=== PATIENT | male | born 1965 ===

== ENCOUNTER 2022-08-30 06:51 | Day surgery (SDC) | payer OTHER ==
[~2022-08-30 06:51] MED LIST: PREVACID30 MG PO; ZESTRIL10 M1 PO
== END 2022-08-30 18:40 | disposition home or self-care (01) ==
LOC: CIR.AMB 06:51
PROVIDERS: ATTEND Colon & Rectal Surgery
DX: K64.8 Other hemorrhoids (principal); K64.1 Second degree hemorrhoids; Z20.822 Contact with and (suspected) exposure to COVID-19; Z88.0 Allergy status to penicillin; I10 Essential (primary) hypertension